=== PATIENT | female | born 1970 | race African-American/Black ===

== ENCOUNTER 2016-02-29 09:17 | Outpatient (CLI) | payer BC ==
[2016-02-29 11:00] LABS: ALT (SGPT) 9 U/L (0-55); AST (SGOT) 16 U/L (5-34); Alkaline Phosphatase 74 U/L (40-150); Anion Gap 13 mmol/L (10-20); BUN (Urea Nitrogen) 10 mg/dL (7.0-18.7); Bilirubin, Total 0.3 mg/dL (0.2-1.2); Calc. Creatinine Clearance 0 mL/min (70-130); Calcium 8.9 mg/dL (7.8-10.44); Carbon Dioxide 22 mmol/L (22-29); Chloride 106 mmol/L (98-107); Estimated GFR-MDRD Greater than 90; Globulin 3.4 g/dL (2.4-3.5); LDL Cholesterol, Calculated 118 mg/dL; Protein, Total 7.3 g/dL (6.0-8.3)
[2016-02-29 11:17] LABS: #Basophils 0.1 thou/uL (0.0-0.2); #Eosinphils 0.2 thou/uL (0.0-0.7); #Lymphocytes 3.4 thou/uL (1.20-3.40); #Monocytes 0.6 thou/uL (0.11-0.59); #Neutrophils 6.3 thou/uL (1.40-6.50); %Basophils 0.7 % (0.0-1.0); %Eosinophils 1.6 % (0.0-10.0); %Monocytes 5.4 % (0.0-10.0); Anisocytosis SLIGHT = 6-15 cells (100X) (0-5/hpf); Hematocrit 32.7 % (36.0-47.0); Mean Platelet Volume 6.1 fL (7.4-10.4); Red Blood Cell (RBC) Count 4.14 mill/uL (4.20-5.40); White Blood Cell (WBC) Count 10.5 thou/uL (4.8-10.8)
== END 2016-02-29 09:18 ==
LOC: HPCALD 09:17
PROVIDERS: ATTEND Family Medicine
DX: Z13.6 Encounter for screening for cardiovascular disorders (principal); R03.0 Elevated blood-pressure reading, without diagnosis of hypertension; R63.5 Abnormal weight gain
CPT/HCPCS: 36415; 80053; 80061; 84443; 85025

== ENCOUNTER 2016-11-25 10:54 | Outpatient (CLI) | payer BC ==
--- NOTE | 2016-11-25 14:36 | RAD ---
CHEST TWO VIEWS: Date: 11-25-16 Comparison: 08-03-15 from [facility]. FINDINGS: The heart is normal in size and the lungs are clear. No infiltrate or effusion is seen. There is no sign of pneumonia. The mediastinum appears normal and the trachea is midline. IMPRESSION: No acute thoracic finding. POS: HOME
== END 2016-11-25 10:55 | disposition home or self-care (01) ==
LOC: BURRAD 10:54
PROVIDERS: ATTEND Family Medicine
DX: R05 Cough (principal)
CPT/HCPCS: 71020

== ENCOUNTER 2017-01-20 15:53 | Outpatient (CLI) | payer BC ==
--- NOTE | 2017-01-20 19:03 | RAD ---
CERVICAL SPINE THREE VIEWS: Date: 01-20-17 FINDINGS: No fracture was seen. There is mild loss of the normal cervical lordosis, particularly in the upper c ervical region which could be due to muscle spasm. No fracture or dislocation was seen. There may be some marginal disc space narrowing at C3-4, but otherwise, the disc spaces were unremarkable. There a re some early osteophytes beginning to form anteriorly at C4 and below. The soft tissues are normal i n thickness and the C1-2 dens distance is normal. IMPRESSION: Very mild degenerative changes. Loss of cervical lordosis. POS: HOME
== END 2017-01-20 15:54 | disposition home or self-care (01) ==
LOC: BURRAD 15:53
PROVIDERS: ATTEND Family Medicine
DX: M54.2 Cervicalgia (principal); M47.892 Other spondylosis, cervical region; M40.50 Lordosis, unspecified, site unspecified
CPT/HCPCS: 72040

== ENCOUNTER 2017-09-01 09:34 | Outpatient (CLI) | payer BC ==
--- NOTE | 2017-09-01 17:28 | RAD ---
LEFT KNEE FOUR VIEWS: 09/01/2017 FINDINGS: No fracture or joint space narrowing is seen. The articular surfaces are smooth. There is some ossi fication at the attachment of the quadriceps tendon on the superior patella, a longstanding finding. There may be a small joint effusion. There does not appear to be a large one. IMPRESSION: At most, small joint effusion. POS: HOME
== END 2017-09-01 09:35 | disposition home or self-care (01) ==
LOC: BURRAD 09:34
PROVIDERS: ATTEND Family Medicine
DX: M25.562 Pain in left knee (principal); M25.462 Effusion, left knee

== ENCOUNTER 2017-12-24 11:20 | Outpatient (CLI) | payer BC ==
--- NOTE | 2017-12-24 21:55 | ULT ---
LEFT LOWER EXTREMITY VENOUS ULTRASOUND 12/24/17 Color duplex doppler ultrasonography of the deep veins of the left lower extremity was performed. All deep veins were freely compressible from groin to ankle. No echogenic clot was seen. There was tereso l doppler responses to augmentation maneuvers. IMPRESSION: No evidence of DVT. POS: HOME
== END 2017-12-24 11:21 | disposition home or self-care (01) ==
LOC: BURULT 11:20
PROVIDERS: ATTEND Family Medicine
DX: M79.605 Pain in left leg (principal)

== ENCOUNTER 2018-06-03 08:24 | Outpatient (CLI) | payer BC ==
--- NOTE | 2018-06-03 17:47 | ULT ---
BILATERAL RENAL ULTRASOUND: 06/03/2018 TECHNIQUE: Ultrasonography of the urinary tract is performed. FINDINGS: Both kidneys appear normal with a normal thickness of cortex and normal echogenicity. No mass, cyst, or hydronephrosis is seen in either. The right kidney measures 11.1 x 4.2 x 4.6 cm and the left mir sures 10.3 x 7.0 x 5.3 cm. Several frames through the urinary bladder show no internal defects, but the bladder is not well dist ended. IMPRESSION: Unremarkable renal ultrasound. POS: HOME
== END 2018-06-03 08:25 | disposition home or self-care (01) ==
LOC: BURULT 08:24
PROVIDERS: ATTEND Family Medicine
DX: R10.9 Unspecified abdominal pain (principal)
CPT/HCPCS: 76770

== ENCOUNTER 2019-12-24 14:37 | Outpatient (CLI) | payer BC ==
--- NOTE | 2019-12-24 18:56 | RAD ---
CERVICAL SPINE THREE VIEWS: 12/24/19 There is straightening of the cervical spine but no fracture, dislocation, or disc space narrowing. S ome osteophytes are beginning to form anteriorly. The soft tissues are normal in thickness and the C1 to dens distance is normal. IMPRESSION: Mild straightening of the cervical spine. Mild degenerative changes. POS: HOME
== END 2019-12-24 14:38 | disposition home or self-care (01) ==
LOC: BURRAD 14:37
PROVIDERS: ATTEND Family Medicine
DX: M54.2 Cervicalgia (principal); M47.812 Spondylosis without myelopathy or radiculopathy, cervical region
CPT/HCPCS: 72040

== ENCOUNTER 2022-05-29 13:19 | Outpatient (CLI) | payer BC | END 2022-05-29 13:20 | disposition home or self-care (01) | LOC: BURRAD 13:19 | PROVIDERS: ATTEND Family Medicine | DX: M79.671 Pain in right foot (principal); M79.641 Pain in right hand; M79.605 Pain in left leg ==

== ENCOUNTER 2025-01-03 07:15 | Outpatient (CLI) | payer BC | END 2025-01-03 07:16 | disposition home or self-care (01) | LOC: BURRAD 07:15 | PROVIDERS: ATTEND Family Medicine | DX: M25.561 Pain in right knee (principal); M17.11 Unilateral primary osteoarthritis, right knee ==